=== PATIENT | male | born 1960 | race Caucasian/White ===

== ENCOUNTER 2023-11-14 17:03 | Inpatient (IN) | payer OTHER, SELFPAY ==
[2023-11-14] VITALS (7 sets, daily range): BP systolic 106–134; BP diastolic 70–83; BMI 18.8; BMI 18.6
[2023-11-14 13:52] LABS: % Basophils 0.3 % (0-2); % Eosinophils 0.3 % (0-6); % Immature Granulocytes 0.6 % (0-0.5); % Lymphocytes 14.2 % (20.5-51.1); % Monocytes 6.9 % (1.7-9.3); % Neutrophils 77.7 % (42.2-75.2); Absolute Immature Granulocytes 0.1 10^3/uL (0-0.05); Absolute Lymphocytes 1.1 10^3/uL (1.2-3.4); Absolute Monocytes 0.5 10^3/uL (0.1-0.6); Absolute Neutrophils 6.1 10^3/uL (1.4-6.5); Hematocrit 40.7 % (39.0-52.0); Hemoglobin 14.6 g/dL (13.0-18.0); Mean Corp Hgb Conc. 35.9 g/dL (33.0-37.0); Mean Corpuscular Hgb 32.6 pg (27.0-31.0); Mean Corpuscular Volume 90.8 fL (80.0-94.0); Mean Platelet Volume 9.2 fL (7.4-10.4); Nucleated Red Blood Cells % 0 % (-); Platelet Count 219 10^3/uL (130-400); Red Blood Cell Count 4.48 10^6/uL (4.70-6.10); Red Cell Dist. Width 12.6 % (11.5-14.5); White Blood Cell Count 7.9 10^3/uL (4.8-10.8)
--- NOTE | 2023-11-14 13:53 | ED.GENMED ---
History of Present Illness
General
Chief Complaint: Dizziness
Source: patient
Exam Limitations: none
Time Seen by Provider: 11/14/23 13:49
Nursing documentation reviewed up to this point in time: agreed with
History of Present Illness
History of Present Illness:
Patient is a 63-year-old male with obvious developmental delay brought by staff for evaluation of weakness. Patient lives in his own house however is cared for by a program called [facility]. Caregiver at bedside reports patient is very
weak and shaky today. Patient infected fall yesterday and since then complains of low back pain. He denies hitting his head but complains of low back pain.
Caregiver at bedside reports he is there from the hours of 8-Tuesday through there are other staff there who help patient with his meals. Patient walks multiple miles a day does drink some water however caregiver reports patient mostly
drinks soda throughout the day.
Patient does not have a great appetite as per staff.
Past History
Past History
ED Past Medical History: Psychiatric
Social History
Living: alone
Review of Systems
Review of Systems
Allergies reviewed?: Yes
All Other Systems: ROS reviewed and negative except as documented in HPI and ROS
Constitutional: Reports fatigue
Respiratory: Reports no symptoms
Cardiac: Reports no symptoms
ABD/GI: Reports other (dec appetite )
: Reports no symptoms
Musculoskeletal: Reports back pain (Low back pain)
Skin: Reports no symptoms
Psychiatric: Reports no symptoms
Phy Exam
General Physical Exam
General Presentation: no apparent distress
General age: appears stated age
General Skin: warm and dry
General Habitus: normal
General Mental: alert
General Hydration: appears well hydrated
Cardiovascular Exam
Cardiovascular Exam: regular rate/rhythm, no murmur and normal peripheral pulses
Pulmonary Exam
Pulmonary Exam: lungs clear and no respiratory distress
Gastrointestinal Exam
Gastrointestinal Exam: normal bowel sounds, non tender and soft
Neurological Exam
Neurological Exam: alert
Musculoskeletal Exam
Musculoskeletal Exam: full ROM
Skin Exam
Skin Exam: normal color and warm/dry
Psychiatric Exam
Psychiatric Exam: normal mood/affect
Course
Orders/Labs/Results
Orders:
Orders
11/14/23 13:28
EKG [Electrocardiogram (*1)] Urgent
Reason for Study: Vertigo / Dizzy
11/14/23 13:29
EKG- Treatment ONCE
11/14/23 13:30
CMP [Comprehensive Metabolic Panel] Urgent
Complete Blood Count/With Diff Urgent
Serum Osmolality Urgent
Comment: ADD ON
11/14/23 14:22
Lumbar Spine Complete, 4 View [CR Lumbar Spine Comp Min 4 Vw*] Urgent
Comment:
Reason For Exam: trauma
11/14/23 14:25
0.9% Sodium Chloride 1000 ml [Nss] 1,000 ml IV BOLUS
11/14/23 14:50
Speech Therapy Eval & Treat Urgent
11/14/23 15:51
UA Reflex to Culture [Urinalysis Reflex To Culture] Urgent
11/14/23 15:59
Urine Sodium Urgent
11/14/23 16:00
Add On- LAB Urgent
Tests Added?: Serum osmolality
Abnormal Lab Results
11/14/23
13:30
RBC 4.48 L 10^6/uL
(4.70-6.10)
MCH 32.6 H pg
(27.0-31.0)
Abs Immat Gran (auto) 0.1 H 10^3/uL
(0-0.05)
Absolute Lymphs (auto) 1.1 L 10^3/uL
(1.2-3.4)
Immature Gran % 0.6 H %
(0-0.5)
Neutrophils % 77.7 H %
(42.2-75.2)
Lymphocytes % 14.2 L %
(20.5-51.1)
Sodium 127 L mmol/L
(135-145)
Chloride 89 L mmol/L
(98-107)
AST 149 H U/L
(17-59)
ALT 91 H U/L
(0-50)
11/14/23 13:30
11/14/23 13:30
Vital Signs
Initial and Last Documented VS:
Initial Vital Signs
Temp Pulse Resp BP Pulse Ox
98.9 F 102 20 134/83 96
11/14/23 12:31 11/14/23 12:31 11/14/23 12:31 11/14/23 12:31 11/14/23 12:31
Last Documented Vital Signs
Temp Pulse Resp BP Pulse Ox
98.9 F 100 27 114/73 96
11/14/23 12:31 11/14/23 15:45 11/14/23 15:45 11/14/23 15:00 11/14/23 15:45
MDM/Problems Addressed
Differential Diagnosis Includes:
Not limited to dehydration electrolyte abnormality
MDM/Problems Addressed:
Patient is a 63-year-old male brought by caregiver. Patient lives in a homeless care for by staff. He does appear to have some type of the mental delay but is awake alert and able to answer questions. He complains of weakness and staff reports he
fell yesterday due to the weakness. He does complain of low back pain. He has no obvious fractures on x-ray. He is awake alert answers questions only as discussed denies hitting his head and there is no obvious head injury on exam he is not on
blood thinners. His sodium however was found to be low at 127. Patient apparently does a lot of walking throughout the day and exercises but does not drink a lot of water. Staff reports he drinks a lot of soda. Discussed with nephrology will
check urine studies and admit for weakness hyponatremia likely related to dehydration
*Radiology
Radiology exam reviewed: radiology read reviewed
*Pulse Oximetry
Patient hypoxic: no
*EKG
Heart Rate: 88
Rate: normal
Rhythm: sinus
Ischemia: non-specific ST changes
*Critical Care Note
Total Time (30-74mins, 75-104mins- exclusive of procedures): Not Applicable
ED Attending Note
-
Portions of this chart may have been created with voice recognition software.� Occasional wrong word or��sound alike� substitutions may have occurred due to the inherent limitations of voice recognition software.
Discharge Plan
Departure
Patient Disposition: Admit
Date of Disposition: 11/14/23
Time of Disposition: 16:14
Admit to: Med/Surg
Admit to doctor: hospitalist
Presentation/result/management discussed w/ accepting MD/DO: Hospitalist
Patient with high blood pressure during this ER visit?: Yes
Condition: Fair
Covid-19: Not Applicable
Discharge Problem:
Weakness, Acute hyponatremia
Prescriptions:
No Action
Unobtainable
0
Patient Comments:
Patient
Referrals:
UNKNOWN - PT DOES,NOT KNOW [Family Provider] -
Interventions
Interventions:
*Risk Screen - Suicide Last Done: 11/14/23 13:17
*General Assessment Last Done: 11/14/23 13:17
ED- Fall Risk Assessment Last Done: 11/14/23 13:17
*ED COVID-19 Vaccine History Last Done: 11/14/23 13:17
ED- Cardiac Assessment Last Done: 11/14/23 13:17
ED- Neurological Assessment Last Done: 11/14/23 13:17
ED Swallowing Screen Last Done: 11/14/23 13:30
Discharge Date and Time
Print Language: MOROCCAN
[2023-11-14 14:03] LABS: ALT (SGPT) 91 U/L (0-50); AST (SGOT) 149 U/L (17-59); Albumin 4.5 g/dl (3.5-5.0); Alkaline Phosphatase 83 U/L (38-126); Blood Urea Nitrogen 17 mg/dl (9-20); Calcium 9.3 mg/dl (8.4-10.2); Carbon Dioxide 26 mmol/L (22-30); Chloride 89 mmol/L (98-107); Estimated Creatinine Clearance 82 ml/min; Glucose 92 mg/dl (70-99); Potassium 4.1 mmol/L (3.5-5.1); Sodium 127 mmol/L (135-145); Total Bilirubin 1.1 mg/dl (0.2-1.3); Total Protein 6.9 g/dl (6.3-8.2); eGFR > 60.00
[2023-11-14] MEDS: NSS 1000 IV (14:51)
--- NOTE | 2023-11-14 15:25 | PTOTSP ---
Speech Language Pathology
Pt seen for clinical bedside swallow evaluation. RN reported pt noted to cough with milkshake earlier this date. Pt reported to MILITARY EXCHANGE WIRELESS MANAGER that he coughs occasionally, but has never had PNA. Caregiver present denied any significant coughing with P.O.
intake. P.O. trials of puree, regular solids, and thin liquids. Softened regular solid in liquid, as he stated it would be too hard to chew. Adequate mastication with softened solids. No overt signs of aspiration.
Recommend:
(1) IDDSI Level 6 (Soft/Bite-Sized) and Thin Liquids
(2) Aspiration precautions: sit upright, slow rate
(3) Meds as tolerated
(4) MILITARY EXCHANGE WIRELESS MANAGER to continue to follow
--- NOTE | 2023-11-14 16:20 | HPS.HSE ---
Family Physician
-
Family Physician: NOT KNOW UNKNOWN - PT DOES
Chief Complaint
-
weakness and fall
History of Present Illness
HPI: 63-year-old male with PMH developmental delay, Hypertension, HLD, Anxiety/Depression; p/w weakness. Patient lives in his own house however is cared for by a program called [facility]. Caregiver reported that the patient was very weak
and shaky.
Patient fell the day prior and has since complained of low back pain. He denies hitting his head.
Medical History
Past Medical History
Past Medical History: Reports Other
Additional Past Medical History:
developmental delay
Hypertension
HLD
Anxiety/Depression
Past Surgical History: Reports None
Social History
Tobacco: Non-smoker
Alcohol: None
Living: Alone
Family History
Family History: Not pertinent
Allergies / Home Medications
Allergies reflects when Allergies were last updated in [facility].
Home Medications with original date entered in [facility]
Allergy/Medication List:
Allergies
Allergy/AdvReac Type Severity Reaction Status Date / Time
No Known Allergies Allergy Verified 11/14/23 12:32
Home Medications
citalopram 10 mg tablet 10 mg PO DAILY@199911/14/23
citalopram 20 mg tablet 20 mg PO DAILY 11/14/23
deutetrabenazine 9 mg tablet (Austedo) 18 mg PO BID 11/14/23
lisinopril 5 mg tablet 5 mg PO DAILY 11/14/23
risperidone 0.5 mg tablet 0.5 mg PO DAILY@199911/14/23
risperidone 1 mg tablet 1 mg PO DAILY@199911/14/23
simvastatin 40 mg tablet 40 mg PO DAILY 11/14/23
Review of Systems
-
Constitutional: Reports Other (weakness and fall)
Physical Exam
Vital Signs
Vital Signs
Temp Pulse Resp BP Pulse Ox
37.2 C 100 27 114/73 96
11/14/23 12:31 11/14/23 15:45 11/14/23 15:45 11/14/23 15:00 11/14/23 15:45
Physical Exam
General: Well Developed, Well Nourished, No Apparent Distress, Comfortable and Conversant
HEENT: NormoCephalic, Moist mucous membranes and Atraumatic
Respiratory: Clear and Non Labored Respirations; No Accessory Resp Muscle Use
Cardiac: S1/S2 and Regular Rhythm; No Murmur or Rub
GI: Soft, Non Tender, Non Distended and Normal Bowel Sounds; No Organomegaly
Rectal: Deferred by Provider
Musculoskeletal: No Cyanosis
Skin: No Rash
Neuro: Awake, Alert and Other (R arm involuntary movement)
Psych: Calm; No Intact Judgment/Insight
Laboratory Results
-
11/14/23 13:30
11/14/23 13:30
Laboratory Results
Total Bilirubin 1.1 mg/dl (0.2-1.3) 11/14/23 13:30
AST 149 U/L (17-59) H 11/14/23 13:30
ALT 91 U/L (0-50) H 11/14/23 13:30
Alkaline Phosphatase 83 U/L (38-126) 11/14/23 13:30
Data Reviewed
-
Diagnostic Radiology: Image Personally Visualized and interpreted and Report Reviewed by me
Lab Data: Labs Reviewed by me
Impression/Plan
-
HPI: 63-year-old male with PMH developmental delay, Hypertension, HLD, Anxiety/Depression; p/w weakness. Patient lives in his own house however is cared for by a program called [facility]. Caregiver reported that the patient was very weak
and shaky.
Patient fell the day prior and has since complained of low back pain. He denies hitting his head.
A/P:
# Weakness and mechanical fall
Lumbar XR on admission showed no acute radiographic abnormalities. No evidence for compression deformity. Mild disc disease at L3-4.
pain control with Tylenol
PT OT eval
check urine Cx and CRP for UTI/acute infectious process respectively as causes of weakness
# Possible symptomatic hyponatremia
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
Sodium level 127 on admission
Monitor sodium level
Check urine Osm, sodium sodium
renal consulted from admission
Noted pt on citalopram and Risperdal prior to admission, consult psych for psychotropic medications playing a role in his hyponatremia
# h/o hypertension
Monitor BP
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
# h/o HLD
# h/o Anxiety/ Depression.
# R arm Chorea
noted pt on Austedo RECORD CHANGER TESTER
DVT ppx: Lovenox SQ
FC
[2023-11-14 17:15] LABS: Osmolality Serum 264 mOsm/kg (275-300)
--- NOTE | 2023-11-14 18:09 | PTCARENOTE ---
pt presents from ED via stretcher. pt is AAO*3, developmental delay. Vss. c/o pain on lower back unable to score. pt is oriented to the room. call paul within the reach. plan of care ongoing.
[2023-11-14] MEDS: LOVENOX SC (18:13)
[2023-11-14] MEDS: TYLENOL 650 MG PO (18:13)
[2023-11-14] MEDS: RISPERDAL 1 MG PO (20:54)
[2023-11-14] MEDS: RISPERDAL 0.5 MG PO (20:54)
[2023-11-14] MEDS: CELEXA 10 MG PO (21:54)
[2023-11-15 07:00] VITALS: BP 125/86
[2023-11-15 08:40] LABS: Hemoglobin 13.6 g/dL (13.0-18.0); Mean Corp Hgb Conc. 35.8 g/dL (33.0-37.0); Mean Corpuscular Volume 89.4 fL (80.0-94.0); Mean Platelet Volume 9.3 fL (7.4-10.4); Platelet Count 216 10^3/uL (130-400); Red Blood Cell Count 4.25 10^6/uL (4.70-6.10); Red Cell Dist. Width 12.7 % (11.5-14.5); White Blood Cell Count 4.2 10^3/uL (4.8-10.8)
[2023-11-15] MEDS: ZESTRIL 5 MG PO (09:04)
[2023-11-15] MEDS: CELEXA 20 MG PO (09:04)
[2023-11-15 09:08] LABS: Blood Urea Nitrogen 11 mg/dl (9-20); Calcium 9.1 mg/dl (8.4-10.2); Carbon Dioxide 27 mmol/L (22-30); Chloride 100 mmol/L (98-107); Estimated Creatinine Clearance 81 ml/min; Glucose 104 mg/dl (70-99); Magnesium 1.9 mg/dl (1.6-2.3); Potassium 4.4 mmol/L (3.5-5.1); Sodium 134 mmol/L (135-145); eGFR > 60.00
--- NOTE | 2023-11-15 10:29 | W.PN.HOSP.TC ---
Addendum entered and electronically signed by Theresa Posada MD 11/15/23 10:37:
# Elevated LFT noted, Without abdominal pain
Hold prior to admission statin
Check abdominal ultrasound
Check hepatitis panel
Trend LFT
Original Note:
Today's Communication/Plan
-
see A/P
Assessment / Plan
Assessment / Plan
HPI: 63-year-old male with PMH developmental delay, Hypertension, HLD, Anxiety/Depression; p/w weakness. Patient lives in his own house however is cared for by a program called [facility]. Caregiver reported that the patient was very weak
and shaky.
Patient fell the day prior and has since complained of low back pain. He denies hitting his head.
A/P:
# Weakness and mechanical fall
Lumbar XR on admission showed no acute radiographic abnormalities. No evidence for compression deformity. Mild disc disease at L3-4.
pain control with Tylenol
PT OT eval
Follow urine Cx
CRP 23 which is acceptable
# Possible symptomatic hyponatremia
Sodium level 127 on admission, improved to 134
Continue to monitor sodium level
follow urine Osm, sodium sodium
With improvement of sodium level, no need for renal or psych consult
# h/o hypertension
Monitor BP , BP stable
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
# h/o HLD
# h/o Anxiety/ Depression.
# R arm Chorea
noted pt on Austedo CUSTODIAL WORKER
DVT ppx: Lovenox SQ
FC
Discussed with pay station attendant at bedside
Anticipated Discharge: Within 24 hours
Subjective/Interval History
-
Date of Service: November 15, 2023
Objective Data
-
Labs:
Laboratory Results
11/15/23
07:52
WBC 4.2 L
Hgb 13.6
Hct 38.0 L
Plt Count 216
Sodium 134 L
Potassium 4.4
Chloride 100
Carbon Dioxide 27
BUN 11
Creatinine 0.7
Glucose 104 H
Calcium 9.1
Vital Signs:
Vital Signs
Temp Pulse Resp BP Pulse Ox
36.9 C 77 16 118/71 96
11/15/23 07:00 11/15/23 09:04 11/15/23 07:00 11/15/23 09:04 11/15/23 07:00
I&O
11/14/23 11/15/23 11/16/23
06:59 06:59 06:59
Intake Total 0 / 0
Output Total 1050 / 1050
Balance -1050 / -1050
Review of Systems
-
All other systems: Reviewed and negative
Physical Exam
-
General: Well Nourished, No Apparent Distress, Comfortable, Conversant and Other (Developmental delay); Negative Respiratory Distress
HEENT: Normocephalic, Atraumatic, Nose Appears Normal and Ears Appear Normal; Negative Oxygen
Respiratory: Clear to Auscultation and Non Labored Respirations; Negative Accessory Resp Muscle Use
Cardiac: Regular Rhythm and S1/S2
GI: Soft, Nontender, Nondistended and Normal Bowel Sounds
Skin: Warm and Dry
Neuro: Awake and Alert
Psych: Calm
Data Reviewed
-
Labs: Labs Reviewed by me
[2023-11-15 12:30] VITALS: BP 101/69; PULSE 80; O2SAT 96
[2023-11-15 12:36] VITALS: BP 101/69; PULSE 80; O2SAT 96
--- NOTE | 2023-11-15 13:18 | CM ---
[facility] Patient resides independently in an apartment, 6-7 steps down to apartment. Patient denies use of DME, VN, or SNF. Patient has caregiver services through
[facility] , 10-26 (caregiver-Mino). Patient receives meal prep Tuesday nights from [facility]. Patient PCP Skinny Conway, pharmacy [facility] in [place]. Patient denies any food, housing/utility, transportation insecurities at home. Nurse
Jake ([facility]) confirms they will provide transportation to patient upon discharge. Jake reports patient is typically very active. CM will continue to follow for all discharge planning needs.
Plan; return home with caregiver services.
[2023-11-15 14:48] LABS: Hepatitis B Surface Antigen Negative (Negative)
[2023-11-15 14:51] LABS: Hepatitis A IgM Antibody Negative (Negative)
[2023-11-15 15:06] LABS: Hepatitis B Surface Antibody Positive; Hepatitis C Antibody Negative (Negative)
[2023-11-15 15:30] VITALS: BMI 18.6
[2023-11-15 15:32] LABS: Hepatitis A Antibody, Total Negative (Negative)
[2023-11-15 15:40] LABS: Hepatitis B Core Ab, IgM Negative (Negative)
[2023-11-15 15:45] VITALS: BP 106/60
[2023-11-15] MEDS: LOVENOX 40 MG SC (17:39)
[2023-11-15 19:23] LABS: Hepatitis B Core Ab, Total Reactive (Negative)
[2023-11-15] MEDS: CELEXA 10 MG PO (20:44)
[2023-11-15] MEDS: RISPERDAL 0.5 MG PO (20:44)
[2023-11-15] MEDS: RISPERDAL 1 MG PO (20:44)
[2023-11-15 23:55] VITALS: BP 107/69
--- NOTE | 2023-11-16 03:54 | DOWNTIME ---
There was a [employer] Client Kettle Operator Head Downtime on 11/16/2023 from 0100 to 11/16/2023 at 0252. Downtime documentation of patient's care, including medication administrations, has been reconciled in the electronic record per guidelines. Refer to the
patient's paper chart under the miscellaneous tab to see printed paper medication records and downtime forms.
[2023-11-16 07:28] LABS: Glucose - Point of Care 89 mg/dl (70-99)
[2023-11-16 07:30] VITALS: BP 119/76
[2023-11-16] MEDS: ZESTRIL 5 MG PO (09:01)
[2023-11-16] MEDS: CELEXA 20 MG PO (09:03)
[2023-11-16 09:55] LABS: Hematocrit 40.8 % (39.0-52.0); Hemoglobin 14.4 g/dL (13.0-18.0); Mean Corp Hgb Conc. 35.3 g/dL (33.0-37.0); Mean Corpuscular Hgb 32.4 pg (27.0-31.0); Mean Corpuscular Volume 91.9 fL (80.0-94.0); Mean Platelet Volume 9.2 fL (7.4-10.4); Platelet Count 215 10^3/uL (130-400); Red Blood Cell Count 4.44 10^6/uL (4.70-6.10); Red Cell Dist. Width 12.6 % (11.5-14.5); White Blood Cell Count 3.8 10^3/uL (4.8-10.8)
[2023-11-16 10:12] LABS: ALT (SGPT) 74 U/L (0-50); AST (SGOT) 89 U/L (17-59); Alkaline Phosphatase 65 U/L (38-126); Blood Urea Nitrogen 13 mg/dl (9-20); Calcium 9.5 mg/dl (8.4-10.2); Carbon Dioxide 30 mmol/L (22-30); Chloride 100 mmol/L (98-107); Estimated Creatinine Clearance 81 ml/min; Glucose 88 mg/dl (70-99); Magnesium 1.9 mg/dl (1.6-2.3); Potassium 4.5 mmol/L (3.5-5.1); Sodium 134 mmol/L (135-145); Total Bilirubin 0.8 mg/dl (0.2-1.3); Total Protein 6.4 g/dl (6.3-8.2); eGFR > 60.00
--- NOTE | 2023-11-16 10:36 | PN.CDI ---
CDI
- -
CDI:
Physician Documentation Request
Admit Date: 11/14/23 17:03
Dear Doctor Swetha,
Patient admitted with hyponatremia.
Please review the following and provide your response in the progress notes.
Clinical Indicators:
Height: 5' 7'
Weight: 118 lb 9 oz
BMI: 18.6
Please provide an associated diagnosis related to the abnormal BMI, such as:
Underweight
Cachectic
Anorexia
BMI is not important
Other
BMI < or = to 19
Underweight
Weight Loss
Cachectic
Anorexia
Use of terms such as suspected, likely, concern for, or probable (associated with a specific diagnosis that is being evaluated, monitored, or treated as if it exists) are acceptable and can be coded in the inpatient setting, when documented at the
time of discharge.
Thank you,
Sherry TONG,RN,CCDS
CDI Specialist
Available via [employer] text
Please use your independent medical judgment in providing your response.
[2023-11-16 11:00] VITALS: BP 124/76
--- NOTE | 2023-11-16 11:04 | W.PN.HOSP.TC ---
Addendum entered and electronically signed by Theresa Posada MD 11/16/23 11:36:
A/P:
# Weakness and mechanical fall at home
Lumbar XR on admission showed no acute radiographic abnormalities. No evidence for compression deformity. Mild disc disease at L3-4.
pain control with Tylenol
PT OT cleared for pt to return home
CRP 23 which is acceptable
# Possible symptomatic hyponatremia , resolved
Sodium level 127 on admission, improved to 134 today
With improvement of sodium level, no need for renal or psych consult
# Elevated LFT without abdominal pain, improved
Abd US unrevealing
Hep panel noted prior hep B exposure
Would hold INDUSTRIAL ENGINEER statin until outpt LFT follow up
Check LFT with PCP in 1 week
DVT ppx: Lovenox SQ
FC
Discussed with audiology assistant at bedside
Original Note:
Today's Communication/Plan
-
Plan for discharge.
Assessment / Plan
Assessment / Plan
Assessment -
63-year-old male with PMH developmental delay, Hypertension, HLD, Anxiety/Depression; p/w weakness. Patient lives in his own house however is cared for by a program called [facility]. Caregiver reported that the patient was very weak and
shaky.
Plan -
Weakness and mechanical fall
Lumbar XR on admission showed no acute radiographic abnormalities. No evidence for compression deformity. Mild disc disease at L3-4.
pain control with Tylenol.
PT OT on board, cleared him.
Follow urine Cx
CRP 23 on day of admission
Elevated liver enzymes-
No history of travel or alcohol use.
recommend outpatient workup.
Possible symptomatic hyponatremia
Sodium level 127 on admission, improved to 134
Continue to monitor sodium level
Psych eval cancelled, yesterday as serum sodium improved.
Plan for discharge
h/o hypertension
BP stable
Not on BP meds INDUSTRIAL ENGINEER
DVT ppx: Lovenox SQ
FC
Conditions INDUSTRIAL ENGINEER -
HLD
Anxiety/ Depression.
R arm Chorea
noted pt on Austedo INDUSTRIAL ENGINEER
Anticipated Discharge: Today
Subjective/Interval History
-
Date of Service: November 16, 2023
Patient feels much better today.
Denies having any complaints.
Objective Data
-
Labs:
Laboratory Results
11/16/23
08:48
WBC 3.8 L
Hgb 14.4
Hct 40.8
Plt Count 215
Sodium 134 L
Potassium 4.5
Chloride 100
Carbon Dioxide 30
BUN 13
Creatinine 0.7
Glucose 88
Calcium 9.5
Total Bilirubin 0.8
AST 89 H
ALT 74 H
Alkaline Phosphatase 65
Vital Signs:
Vital Signs
Temp Pulse Resp BP Pulse Ox
98.8 F 74 18 119/76 97
11/16/23 07:30 11/16/23 09:01 11/16/23 07:30 11/16/23 09:01 11/16/23 07:30
I&O
11/15/23 11/16/23 11/17/23
06:59 06:59 06:59
Intake Total 1360 / 1360
Output Total 1125 / 1125
Balance 235 / 235
Review of Systems
-
History Source: Patient
Constitutional: Reports No Symptoms
Respiratory: Reports No Symptoms
Cardiac: Reports No Symptoms
Abdomen/GI: Reports No Symptoms
Genitourinary: Reports No Symptoms
Skin: Reports No Symptoms
Neuro: Reports No Symptoms
Endocrine: Reports No Symptoms
Hematologic / Lymphatic: Reports No Symptoms
Physical Exam
-
General: Well Developed, Well Nourished and No Apparent Distress
HEENT: Normocephalic, Atraumatic and Moist Mucous Membranes
Respiratory: Clear to Auscultation; Negative Wheezes, Rales or Rhonchi
Cardiac: Regular Rhythm and S1/S2; Negative Murmur
GI: Soft, Nontender, Nondistended and Normal Bowel Sounds
Musculoskeletal: No Clubbing, No Cyanosis and No Edema
Skin: Warm
Neuro: AO x 3 and DTR's Intact & Symmetrica
Psych: Calm
Data Reviewed
-
Labs: Labs Reviewed by me and Discussed with Physician
--- NOTE | 2023-11-16 11:30 | W.DCSUMMARY ---
Discharge Summary
Discharge Data
Date of Admission: 11/14/23
Date of Discharge: 11/16/23
-
Pending Results: No
Hospital Course
Admission diagnosis-
Weakness.
Moderate hyponatremia
Conditions COSTUMED CHARACTER ENTERTAINER
HLD
Anxiety/ Depression.
R arm Chorea - on Austedo
Hypertension
Developmental delay.
Hospital course -upon admission patient was found to have moderate hyponatremia which could likely be symptomatic resulting in patient's ongoing weakness. As SSRIs can cause SIADH, urine osmolality, urine and serum osmolality were ordered, but
patient's hyponatremia significantly improved overnight and patient felt better. PT and OT were consulted and PT and OT cleared the patient for discharge. Patient is discharged on the same psychotropic medications prior to admission without any
changes.
Also during this admission patient was found to have elevated liver function tests, his statin was held and patient is advised to follow-up with his primary care physician with liver function tests in 1 week.
An abdominal ultrasound obtained for elevated liver function test was unremarkable
Data obtained-
Abdominal ultrasound-11/15/2023-unremarkable.
Lumbar spine x-ray 4 view-11/14/2023-mild disc disease at L3-L4.
Discharge Plan
-
Patient Disposition: Home (Routine Discharge)
Discharge Diagnosis/Procedures: Weakness and fall
Condition: Fair
Diet: As tolerated and Restrict fluids to 48 oz
Activity: As tolerated
Driving Restrictions: As prior to admission
Bathing Restrictions: None
Blood Work: LFT in one week with result to your PCP
Referrals:
UNKNOWN - PT DOES,NOT KNOW [Family Provider] -
Additional Discharge Medication Instructions: Hold simvastatin until further directed by your PCP (after outpatient LFT result)
Prescriptions:
Continued
citalopram 10 mg tablet
10 mg PO DAILY@1999
citalopram 20 mg tablet
20 mg PO DAILY
lisinopril 5 mg tablet
5 mg PO DAILY
risperidone 1 mg tablet
1 mg PO DAILY@1999
risperidone 0.5 mg tablet
0.5 mg PO DAILY@1999
Austedo 9 mg tablet
18 mg PO BID
Held
simvastatin 40 mg tablet
40 mg PO DAILY
Hold Instructions: Resume on 11/23/23. until further directed by your PCP
Discharge Orders:
Discharge Patient (As Directed); Ordered 11/16/23
Ordered By: Deedee Soliman
Discharge Date and Time
Discharge Date/Time: 11/16/23 12:20
Print Language: YAKUT
--- NOTE | 2023-11-16 14:06 | CM ---
CM reviewed chart, patient for discharge today. Caregivers to provide transport home. CM will continue to follow for all discharge planning needs.
Plan; home no needs, caregivers to transport.
== END 2023-11-16 12:20 | disposition home or self-care (01) | DRG 641 ==
LOC: 4 EAST ACU 17:03
PROVIDERS: Student in an Organized Health Care Education/Training Program; ADMITTING PHYSICIAN Internal Medicine; EMERGENCY PHYSICIAN Emergency Medicine
DX: E87.1 Hypo-osmolality and hyponatremia (principal); R42 Dizziness and giddiness; R62.50 Unspecified lack of expected normal physiological development in childhood; M54.50 Low back pain, unspecified; E86.0 Dehydration; I10 Essential (primary) hypertension; E78.5 Hyperlipidemia, unspecified; R74.8 Abnormal levels of other serum enzymes; F41.9 Anxiety disorder, unspecified; F32.A Depression, unspecified; G25.5 Other chorea; R79.89 Other specified abnormal findings of blood chemistry; M51.36 Other intervertebral disc degeneration, lumbar region; W18.30XA Fall on same level, unspecified, initial encounter; Y93.9 Activity, unspecified; Y92.009 Unspecified place in unspecified non-institutional (private) residence as the place of occurrence of the external cause; Z60.2 Problems related to living alone; Z86.19 Personal history of other infectious and parasitic diseases
CPT/HCPCS: 72110; 76700; 80048; 80053; 82962; 83735; 83930; 85025; 85027; 86140; 86704; 86705; 86706; 86708; 86709; 86803; 87340; 93005; 96360; 97162; 97166; 99285